=== PATIENT | male | born 1985 | race Native Hawaiian/Other Pacific Islander ===

== ENCOUNTER 2021-03-07 05:33 | Emergency (ER) | payer OTHER ==
[~2021-03-07] VITALS: Ht 180.3 cm; Wt 74.4 kg
[2021-03-07 06:44] VITALS: BP 118/72; TEMP 98.1
== END 2021-03-07 06:45 | disposition home or self-care (01) ==
LOC: ED 05:33
DX: H65.191 Other acute nonsuppurative otitis media, right ear (principal); K92.1 Melena
CPT/HCPCS: 82272; 96372; 99283; J0696; J1885